=== PATIENT | female | born 1990 | race Caucasian/White ===

== ENCOUNTER 2018-08-25 20:52 | Outpatient (CLI) | payer MEDICAID ==
--- NOTE | 2018-08-25 23:38 | Ultrasound Report ---
Reason: TEST POSITIVE Procedure Date: 08/25/2018 Accession Number: [id number] / [id number] Procedure: US - OB First Trimester CPT Code: FULL RESULT: EXAM: OBSTETRICAL ULTRASOUND, 11-14 weeks EXAM DATE: 08/25/2018 10:05 PM. CLINICAL HISTORY: TEST POSITIVE. LMP: Unknown. COMPARISON: None. TECHNIQUE: Transabdominal ultrasound examination with static image documentation. DATING: EGA 13 weeks 3 days with JO ANN 02/27/2019 based on the current ultrasound. ASSESSMENT: Single viable intrauterine fetus. CRL (crown-rump length): 73.8 mm = 13 weeks 3 days. Cardiac activity: 144 beats per minute. Placenta: Anterior location. Amniotic fluid: Subjectively normal. Other: No perigestational fluid collection demonstrated. MATERNAL STRUCTURES: Uterus: Anteverted. Unremarkable. Cervix: Closed. Right Ovary/Adnexa: Unremarkable. The ovary measures 3.4 x 2.9 x 2.1 cm, volume 11 cc. Left Ovary/Adnexa: Unremarkable. The ovary measures 3.8 x 2.5 x 2.1 cm, volume 10 cc. Free Fluid: None. Other: None. IMPRESSION: 1. Single viable intrauterine fetus with gestational age 13 weeks 3 days based on current ultrasound. Note: Detailed anatomic survey at 18-22 weeks is recommended for all fetuses evaluated prior to 18 weeks, as some structural abnormalities may be inapparent at earlier gestational ages. RADIA
== END 2018-08-25 20:53 | disposition home or self-care (01) ==
LOC: DI 20:52
PROVIDERS: ATTEND Registered Nurse
DX: Z32.01 Encounter for pregnancy test, result positive (principal)
CPT/HCPCS: 76801

== ENCOUNTER 2018-09-04 12:40 | Outpatient (CLI) | payer MEDICAID ==
[2018-09-04 19:11] LABS: MUDS CUTOFF CONCENTRATIONS CUTOFF CONC BELOW:
[2018-09-04 19:43] LABS: AMPHETAMINE SCREEN,URINE NEGATIVE (NEGATIVE); BENZODIAZEPINES SCREEN, URINE NEGATIVE (NEGATIVE); COCAINE SCREEN URINE NEGATIVE (NEGATIVE); METHADONE SCREEN, URINE NEGATIVE (NEGATIVE); METHAMPHETAMINES SCREEN, URINE NEGATIVE (NEGATIVE); OPIATE SCREEN, URINE NEGATIVE (NEGATIVE); OXYCODONE SCREEN, URINE NEGATIVE (NEGATIVE); PROPOXYPHENE SCREEN, URINE NEGATIVE (NEGATIVE); TRICYCLIC ANTIDEPRESSANT,URINE NEGATIVE (NEGATIVE)
== END 2018-09-04 23:59 | disposition home or self-care (01) ==
LOC: LAB.R 12:40
PROVIDERS: ATTEND Registered Nurse
DX: Z33.1 Pregnant state, incidental (principal)
CPT/HCPCS: 80306; 80349; 81599

== ENCOUNTER 2018-10-09 13:27 | Outpatient (CLI) | payer MEDICAID ==
--- NOTE | 2018-10-09 17:27 | Ultrasound Report ---
Reason: SCREENING, OTHER SPECIFIED Procedure Date: 10/09/2018 Accession Number: [id number] / [id number] Procedure: US - OB Detailed Eval CPT Code: FULL RESULT: EXAM: COMPLETE OBSTETRICAL ULTRASOUND EXAM DATE: 10/09/2018 03:20 PM. CLINICAL HISTORY: anatomic survey. COMPARISON: 08/25/2018 TECHNIQUE: Real-time sonographic evaluation of the fetus performed by the general studies program chair. Multiple plastic products sales representative static images were saved for review. Additional transvaginal imaging to more accurately evaluate cervical length/placental position/etc. DATING: Established EGA 19 weeks 6 days with JO ANN 02/27/2019 based on first ultrasound. EGA 19 weeks 3 days with JO ANN 03/02/2019 based on the current ultrasound. GENERAL EVALUATION Ramos . Cardiac activity: 150 bpm. movement: Visualized. Presentation: Breech Placenta: Anterior position. No evidence for previa. Umbilical cord: 3 vessel cord. Central placental cord origin. Amniotic fluid: Subjectively normal. MVP 3.7 cm. BIOMETRY Bi-Parietal Diameter (BPD): 4.4 cm, 19 weeks 2 days Head Circumference (HC): 16.8 cm, 19 weeks 2 days Abdominal Circumference (AC): 14.5 cm, 19 weeks 6 days Femur Length (FL): 2.9 cm, 19 weeks 0 days Estimated Weight: 294 g, 26th percentile ANATOMY The intracranial structures, profile, face/nose/lips, spine, 4 chamber heart and outflow tracts, stomach, abdominal wall and cord insertion, diaphragm, kidneys, bladder, and extremities were visualized and demonstrate no abnormality. MATERNAL STRUCTURES Uterus: Unremarkable. Cervix: Long and closed. Transabdominal length 3.8 cm. Right ovary/adnexa: Unremarkable. Left ovary/adnexa: Unremarkable. Free fluid: None. IMPRESSION: 1. Ramos intrauterine with gestational age 19 weeks 6 days based on first ultrasound of 08/25/2018.. 2. Estimated weight is within expected limits for assigned dating. 3. Normal anatomic survey. No anatomic abnormalities are detected at this time. RADIA
== END 2018-10-09 13:28 | disposition home or self-care (01) ==
LOC: DI 13:27
PROVIDERS: ATTEND Registered Nurse
DX: Z36.89 Encounter for other specified antenatal screening (principal)
CPT/HCPCS: 76811

== ENCOUNTER 2018-10-29 10:59 | Outpatient (CLI) | payer MEDICAID ==
[2018-10-29 11:23] LABS: BASOPHILS % (AUTO) 0.2 %; EOSINOPHILS # (AUTO) 0.1 10^3/uL (0.0-0.7); EOSINOPHILS % (AUTO) 0.8 %; HGB - HEMOGLOBIN 12.5 g/dL (12.0-16.0); LYMPHOCYTES # (AUTO) 1.7 10^3/uL (1.5-3.5); LYMPHOCYTES % (AUTO) 17.3 %; MEAN CORPUSCULAR HEMOGLOBIN 32.5 pg (27.0-31.0); MEAN CORPUSCULAR HGB CONC 33.1 g/dL (32.0-36.0); MEAN CORPUSCULAR VOLUME 98.2 fL (81.0-99.0); MEAN PLATELET VOLUME 10.2 fL (7.9-10.8); MONOCYTES # (AUTO) 0.5 10^3/uL (0.0-1.0); MONOCYTES % (AUTO) 4.6 %; NEUTROPHILS # (AUTO) 7.7 10^3/uL (1.5-6.6); NEUTROPHILS % (AUTO) 76.7 %; PLT - PLATELET COUNT 229 10^3/uL (130-450); RED BLOOD COUNT 3.85 10^6/uL (4.20-5.40); RED CELL DISTRIBUTION WIDTH 11.9 % (12.0-15.0)
[2018-10-29 11:33] LABS: MUDS CUTOFF CONCENTRATIONS CUTOFF CONC BELOW:
[2018-10-29 11:46] LABS: AMPHETAMINE SCREEN,URINE NEGATIVE (NEGATIVE); BENZODIAZEPINES SCREEN, URINE NEGATIVE (NEGATIVE); COCAINE SCREEN URINE NEGATIVE (NEGATIVE); METHADONE SCREEN, URINE NEGATIVE (NEGATIVE); METHAMPHETAMINES SCREEN, URINE NEGATIVE (NEGATIVE); OPIATE SCREEN, URINE NEGATIVE (NEGATIVE); OXYCODONE SCREEN, URINE NEGATIVE (NEGATIVE); PROPOXYPHENE SCREEN, URINE NEGATIVE (NEGATIVE); TRICYCLIC ANTIDEPRESSANT,URINE NEGATIVE (NEGATIVE)
[2018-10-30 13:11] LABS: HEPATITIS B SURFACE ANTIGEN NON-REACTIVE (NON-REACTIVE); HEPATITIS C ANTIBODY NON-REACTIVE (NON-REACTIVE)
[2018-10-30 15:18] LABS: HIV AG/AB 4TH GEN NON-REACTIVE (NON-REACTIVE)
== END 2018-10-29 11:00 | disposition home or self-care (01) ==
LOC: LAB 10:59
PROVIDERS: ATTEND Registered Nurse
DX: Z33.1 Pregnant state, incidental (principal)
CPT/HCPCS: 36415; 80306; 81599; 85025; 86762; 86803; 86850; 86900; 86901; 87340; 87389

== ENCOUNTER 2018-11-27 08:00 | Outpatient (CLI) | payer MEDICAID | END 2018-11-27 23:59 | LOC: LAB.R 08:00 | PROVIDERS: ATTEND Obstetrics & Gynecology | DX: F11.10 Opioid abuse, uncomplicated (principal) | CPT/HCPCS: 80348; 81599 ==

== ENCOUNTER 2019-01-02 12:43 | Outpatient (CLI) | payer MEDICAID ==
[2019-01-02 14:01] LABS: HGB - HEMOGLOBIN 12.3 g/dL (12.0-16.0); MEAN CORPUSCULAR HEMOGLOBIN 33.3 pg (27.0-31.0); MEAN CORPUSCULAR HGB CONC 33.9 g/dL (32.0-36.0); MEAN CORPUSCULAR VOLUME 98.4 fL (81.0-99.0); MEAN PLATELET VOLUME 10.5 fL (7.9-10.8); RED BLOOD COUNT 3.69 10^6/uL (4.20-5.40); RED CELL DISTRIBUTION WIDTH 12.2 % (12.0-15.0)
== END 2019-01-02 12:44 | disposition home or self-care (01) ==
LOC: LAB 12:43
PROVIDERS: ATTEND Obstetrics & Gynecology
DX: Z36.89 Encounter for other specified antenatal screening (principal)
CPT/HCPCS: 36415; 82950; 85027; 86850

== ENCOUNTER 2019-01-22 08:00 | Outpatient (CLI) | payer MEDICAID ==
[2019-01-23 21:52] LABS: TRICHOMONAS VAGINALIS DNA NEGATIVE (NEGATIVE)
== END 2019-01-22 23:59 | disposition home or self-care (01) ==
LOC: LAB.R 08:00
PROVIDERS: ATTEND Obstetrics & Gynecology
DX: Z36.85 Encounter for antenatal screening for Streptococcus B (principal)
CPT/HCPCS: 87491; 87591; 87661; 87797

== ENCOUNTER 2019-03-06 17:17 | Outpatient (CLI) | payer MEDICAID | END 2019-03-06 17:18 | disposition home or self-care (01) | LOC: WFO 17:17 | PROVIDERS: ATTEND Obstetrics & Gynecology | DX: Z53.9 Procedure and treatment not carried out, unspecified reason (principal) ==

== ENCOUNTER 2022-05-03 08:00 | Outpatient (CLI) | payer MEDICAID ==
[2022-05-03 17:13] LABS: BILIRUBIN,URINE NEGATIVE (NEGATIVE); GLUCOSE, URINE (UA) NEGATIVE (NEGATIVE); KETONES,URINE (UA) NEGATIVE (NEGATIVE); LEUKOCYTE ESTERASE, URINE NEGATIVE (NEGATIVE); NITRITE,URINE NEGATIVE (NEGATIVE); OCCULT BLOOD,URINE NEGATIVE (NEGATIVE); PH,URINE 8.5 PH (5.0-7.5); PROTEIN,URINE NEGATIVE (NEGATIVE); UROBILINOGEN,URINE 0.2 (NORMAL) E.U./dL (NORMAL)
[2022-05-03 17:26] LABS: BACTERIA,URINE Few /HPF (None Seen); CLARITY,URINE CLEAR (CLEAR); RBC,URINE None Seen /HPF (0-5); SQUAMOUS EPITHELIAL CELL,UR MANY Squamous (<= Few); WBC,URINE 0-3 /HPF (0-5)
== END 2022-05-03 23:59 | disposition home or self-care (01) ==
LOC: LAB.WC 08:00
PROVIDERS: ATTEND Obstetrics & Gynecology
DX: Z34.90 Encounter for supervision of normal pregnancy, unspecified, unspecified trimester (principal)
CPT/HCPCS: 81001; 87086

== ENCOUNTER 2022-05-18 20:55 | Outpatient (CLI) | payer MEDICAID ==
--- NOTE | 2022-05-19 03:41 | Ultrasound Report ---
PROCEDURE: OB First Trimester INDICATIONS: POSITIVE TEST OUTSIDE/PRIOR DATING DATA: Last menstrual period (LMP): 03/01/2022. LMP-based estimated date of delivery (JO ANN): 12/06/2022. First dating scan (date and location): 05/18/2022. Estimated date of delivery (JO ANN) from first dating scan: 12/21/2022. TECHNIQUE: Real-time scanning was performed of the fetus and maternal pelvic organs, with image documentation. COMPARISON: FINDINGS: Embryo: There is an intrauterine patency with a gestational sac, yolk sac, and pole identified . The crown-rump length measures up to 2.3 cm corresponding to a gestational age of 9 weeks 0 days. T here is heart motion with a rate of 171 bpm. There is an indistinct heterogeneous subchorionic hematoma measuring proxy by 2.5 x 2 x 2.4 cm. Measurement variability in dating: +/- 4 weeks by LMP, +/- 7 days by mean sac diameter (use before 6 weeks gestation if crown-rump length not able to be measured), +/- 5 days by crown-rump length (6-12 weeks gestation). Maternal organs: The ovaries appear within normal size limits bilaterally. A cyst within the right ov jef measuring up to 1.4 cm likely represents a corpus luteal cyst. No adnexal masses. IMPRESSION: 1. Single living intrauterine with cartilage gestational age of 9 weeks 0 days correspondin g to an estimated delivery date of 12/21/2022. Reviewed by: Adria Vargas MD on 05/19/2022 3:40 AM PST Approved by: Adria Vargas MD on 05/19/2022 3:40 AM PST Station ID: [id number]
== END 2022-05-18 20:56 | disposition home or self-care (01) ==
LOC: DI 20:55
PROVIDERS: ATTEND Obstetrics & Gynecology
DX: Z34.91 Encounter for supervision of normal pregnancy, unspecified, first trimester (principal); Z3A.09 9 weeks gestation of pregnancy

== ENCOUNTER 2022-06-14 14:30 | Outpatient (CLI) | payer MEDICAID ==
[2022-06-15 22:08] LABS: BACTERIAL VAGINOSIS DNA NEGATIVE (NEGATIVE); CANDIDA GLABRATA DNA NEGATIVE (NEGATIVE); CANDIDA GROUP DNA NEGATIVE (NEGATIVE); CANDIDA KRUSEI DNA NEGATIVE (NEGATIVE); TRICHOMONAS VAGINALIS DNA NEGATIVE (NEGATIVE)
[2022-06-15 23:06] LABS: CHLAMYDIA TRACHOMATIS DNA NEGATIVE (NEGATIVE); NEISSERIA GONORRHOEAE DNA NEGATIVE (NEGATIVE)
== END 2022-06-14 23:59 | disposition home or self-care (01) ==
LOC: LAB.N 14:30
PROVIDERS: ATTEND Obstetrics & Gynecology
DX: N89.8 Other specified noninflammatory disorders of vagina (principal); Z11.3 Encounter for screening for infections with a predominantly sexual mode of transmission
CPT/HCPCS: 81514; 87491; 87591; 87661

== ENCOUNTER 2022-06-27 11:46 | Outpatient (CLI) | payer MEDICAID ==
[2022-06-27 12:04] LABS: BASOPHILS % (AUTO) 0.2 %; EOSINOPHILS # (AUTO) 0.1 10^3/uL (0.0-0.7); EOSINOPHILS % (AUTO) 0.7 %; HCT - HEMATOCRIT 39.3 % (37.0-47.0); HGB - HEMOGLOBIN 13.6 g/dL (12.0-16.0); LYMPHOCYTES # (AUTO) 1.9 10^3/uL (1.5-3.5); LYMPHOCYTES % (AUTO) 18.7 %; MEAN CORPUSCULAR HEMOGLOBIN 32.3 pg (27.0-31.0); MEAN CORPUSCULAR HGB CONC 34.6 g/dL (32.0-36.0); MEAN CORPUSCULAR VOLUME 93.3 fL (81.0-99.0); MEAN PLATELET VOLUME 10.4 fL (7.9-10.8); MONOCYTES # (AUTO) 0.5 10^3/uL (0.0-1.0); MONOCYTES % (AUTO) 5.1 %; NEUTROPHILS # (AUTO) 7.8 10^3/uL (1.5-6.6); NEUTROPHILS % (AUTO) 75.1 %; PLT - PLATELET COUNT 265 10^3/uL (130-450); RED BLOOD COUNT 4.21 10^6/uL (4.20-5.40); RED CELL DISTRIBUTION WIDTH 11.9 % (12.0-15.0); WHITE BLOOD COUNT 10.3 x10^3/uL (4.8-10.8)
[2022-06-28 05:10] LABS: HBsAG SCREEN Negative (Negative)
[2022-06-28 06:10] LABS: RPR Non Reactive (Non Reactive)
[2022-06-28 08:10] LABS: VARICELLA-ZOSTER AB IGG 252 index (Immune >165)
[2022-06-29 05:11] LABS: HCV AB Non Reactive (Non Reactive); HIV SCREEN 4TH GENERATION Non Reactive (Non Reactive)
== END 2022-06-27 11:47 | disposition home or self-care (01) ==
LOC: LAB 11:46
PROVIDERS: ATTEND Obstetrics & Gynecology
DX: Z34.90 Encounter for supervision of normal pregnancy, unspecified, unspecified trimester (principal)
CPT/HCPCS: 36415; 85025; 86592; 86762; 86787; 86803; 86850; 86900; 86901; 87340; 87389

== ENCOUNTER 2022-08-06 20:05 | Outpatient (CLI) | payer MEDICAID ==
--- NOTE | 2022-08-07 14:39 | Ultrasound Report ---
PROCEDURE: OB Detailed Eval INDICATIONS: SUPERVISION OF OUTSIDE/PRIOR DATING DATA: Last menstrual period (LMP): 03/01/2022. LMP-based estimated date of delivery (JO ANN): 12/06/2022. First dating scan (date and location): 05/18/2022. Estimated date of delivery (JO ANN) from first dating scan: 12/21/2022. The below data below was generated using the ultrasound JO ANN of 12/21/2022 TECHNIQUE: Real-time scanning was performed of the fetus, with image documentation and biometric measurements. COMPARISON: OB ultrasound 05/19/2022 FINDINGS: General: A single living intrauterine gestation is present. Presentation: Variable Placenta: Placental position is posterior, without previa. Amniotic fluid index: 13.9 cm, within normal limits for gestational age. heart rate: 144 beats per minute. Maternal cervical canal: Closed biometrics: Biparietal diameter: 5.1 cm 21 weeks 3 days Head circumference: 19.0 cm 21 weeks 2 days Abdominal circumference: 16.2 cm 21 weeks 2 days Femur length: 3.5 cm 21 weeks 0 days Estimated gestational age from initial scan: 20 weeks 3 days Composite gestational age from present scan: 21 weeks 0 days Estimated weight and percentile: 405.8 g, 85th percentile Measurement variability in biometric dating: +/- 10 days from 12-20 weeks gestation, +/- 2 weeks from 20-30 weeks gestation, +/- 3 weeks at 30 weeks gestation or later. Anatomic survey: Neuro: Ventricles are normal at less than 10 mm. Cisterna magna is normal at 3-11 mm. Cerebellum i s normal in size and morphology. Nuchal skin fold: Normal at less than 6 mm between 14 and 20 weeks gestational age. Face: Nose and lips, facial profile are normal. Spine: Not well seen. Heart: 4-chambered heart and ventricular outflow tracts are suboptimally evalu ated. Diaphragm: Diaphragm is intact. Stomach: Left-sided stomach is present. Kidneys: Slight appearance of renal pelvic prominence measuring 6 mm bilaterally. Cord: 3 vessel cord has orthotopic insertion. Bladder: Normal in size. Extremities: All 4 extremities are visualized. IMPRESSION: Single live intrauterine with ultrasound gestational age today of 21 weeks 0 days. Heart/outflow tracts as well as spine are suboptimally evaluated. Minimal prominence of the renal pelvises bilaterally. Reviewed by: Kelli Mendoza MD on 08/07/2022 2:38 PM PDT Approved by: Kelli Mendoza MD on 08/07/2022 2:38 PM PDT Station ID: [id number]
== END 2022-08-06 20:06 | disposition home or self-care (01) ==
LOC: DI 20:05
PROVIDERS: ATTEND Nurse Practitioner
DX: Z34.92 Encounter for supervision of normal pregnancy, unspecified, second trimester (principal); Z36.89 Encounter for other specified antenatal screening

== ENCOUNTER 2022-10-05 20:08 | Outpatient (CLI) | payer MEDICAID ==
--- NOTE | 2022-10-06 00:50 | Ultrasound Report ---
PROCEDURE: OB F/U or Repeat INDICATIONS: SUPERVISION OF OUTSIDE/PRIOR DATING DATA: Last menstrual period (LMP): 03/01/2022. LMP-based estimated date of delivery (JO ANN): 12/06/2022. First dating scan (date and location): 05/18/2022. Estimated date of delivery (JO ANN) from first dating scan: 12/21/2022. The below data below was generated using the ultrasound JO ANN of 12/21/2022 TECHNIQUE: Real-time scanning was performed of the fetus, with image documentation. COMPARISON: 08/06/2022, 05/18/2022 FINDINGS: General: A single live intrauterine gestation is present. Presentation: Transverse Placenta: Placental position is posterior, without previa. Amniotic fluid index: 14.8 cm, within normal limits for gestational age. heart rate: 132 beats per minute. Maternal cervical canal: Not seen. Other: The spine, cardiac outflow tracts, diaphragm and stomach are within normal limits. Prominence of the renal pelvis can be seen on each side, without brianna hydronephrosis. A nuchal cord can be seen. IMPRESSION: No brianna anatomic abnormality is seen. The cardiac outflow tracts down for normal. Prominence of the renal pelvis can be seen on each side, yet without brianna hydronephrosis. A nuchal cord can be seen. Reviewed by: Rachid Melendez MD on 10/05/2022 11:49 PM TORO Approved by: Rachid Melendez MD on 10/05/2022 11:49 PM TORO Station ID: [id number]
== END 2022-10-05 20:09 | disposition home or self-care (01) ==
LOC: DI 20:08
PROVIDERS: ATTEND Nurse Practitioner
DX: O34.211 Maternal care for low transverse scar from previous cesarean delivery (principal); Z3A.00 Weeks of gestation of pregnancy not specified

== ENCOUNTER 2022-10-25 11:51 | Outpatient (CLI) | payer MEDICAID ==
--- NOTE | 2022-10-25 17:33 | Ultrasound Report ---
PROCEDURE: OB F/U or Repeat INDICATIONS: SUPERVISION OF OUTSIDE/PRIOR DATING DATA: Last menstrual period (LMP): 03/01/2022. LMP-based estimated date of delivery (JO ANN): 12/06/2022. First dating scan (date and location): 05/18/2022. Estimated date of delivery (JO ANN) from first dating scan: 12/21/2022. The below data below was generated using the working JO ANN of 04/01/2023 TECHNIQUE: Real-time scanning was performed of the fetus, with image documentation and biometric measurements. Endovaginal scanning: None COMPARISON: None. FINDINGS: General: A single living intrauterine gestation is present. Presentation: Cephalic Placenta: Placental position is posterior, without previa. Amniotic fluid index: 15.5 cm, 57 for gestational age. heart rate: 125 beats per minute. Maternal cervical canal: Not imaged Estimated gestational age from initial scan: 31 week 6 day Measurement variability in biometric dating: +/- 10 days from 12-20 weeks gestation, +/- 2 weeks from 20-30 weeks gestation, +/- 3 weeks at 30 weeks gestation or more. Other: Persistent renal pyelocaliectasis measures 6.1 mm in the right and 5.5 mm the left IMPRESSION: Single live intrauterine consistent with 31 week 6 day gestation. Persistent renal pyelocaliectasis Reviewed by: Mark Blanco MD on 10/25/2022 4:31 PM TORO Approved by: Mark Blanco MD on 10/25/2022 4:31 PM AKDT Station ID: [id number]
== END 2022-10-25 11:52 | disposition home or self-care (01) ==
LOC: DI 11:51
PROVIDERS: ATTEND Nurse Practitioner
DX: O28.3 Abnormal ultrasonic finding on antenatal screening of mother (principal); Z3A.31 31 weeks gestation of pregnancy; O99.891 Other specified diseases and conditions complicating pregnancy; R53.83 Other fatigue; Z36.89 Encounter for other specified antenatal screening
CPT/HCPCS: 36415; 82728; 82950; 85027

== ENCOUNTER 2022-10-25 12:19 | Outpatient (CLI) | payer MEDICAID ==
[2022-10-25 13:33] LABS: HCT - HEMATOCRIT 34.8 % (37.0-47.0); MEAN CORPUSCULAR HEMOGLOBIN 32.4 pg (27.0-31.0); MEAN CORPUSCULAR HGB CONC 34.5 g/dL (32.0-36.0); MEAN CORPUSCULAR VOLUME 94.1 fL (81.0-99.0); RED BLOOD COUNT 3.7 10^6/uL (4.20-5.40); RED CELL DISTRIBUTION WIDTH 11.6 % (12.0-15.0); WHITE BLOOD COUNT 9.7 x10^3/uL (4.8-10.8)
== END 2022-10-25 12:20 | disposition home or self-care (01) ==
LOC: LAB 12:19
PROVIDERS: ATTEND Nurse Practitioner
DX: O99.891 Other specified diseases and conditions complicating pregnancy (principal); R53.83 Other fatigue; Z36.89 Encounter for other specified antenatal screening
CPT/HCPCS: 36415; 82728; 82950; 85027

== ENCOUNTER 2023-10-14 15:00 | Outpatient (CLI) | payer MEDICAID ==
--- NOTE | 2023-10-14 16:38 | XRAY Report ---
PROCEDURE: Chest 2V INDICATIONS: CHEST PAIN TECHNIQUE: 2 views of the chest were acquired. COMPARISON: None. FINDINGS: Surgical changes and devices: None. Lungs and pleura: No pleural effusions or pneumothorax. Patchy pneumonia, right upper lobe. Mediastinum: Mediastinal contours appear normal. Heart size is normal. Bones and chest wall: No suspicious bony lesions. Overlying soft tissues appear unremarkable. IMPRESSION: Patchy right upper lobe pneumonia. Progress films are recommended until clear. Reviewed by: Nakul Cervantes MD on 10/14/2023 4:36 PM PDT Approved by: Nakul Cervantes MD on 10/14/2023 4:36 PM PDT Station ID: [id number]
== END 2023-10-14 15:15 | disposition home or self-care (01) ==
LOC: DI.N 15:00
PROVIDERS: ATTEND Physician Assistant
DX: R07.9 Chest pain, unspecified (principal); J18.9 Pneumonia, unspecified organism

== ENCOUNTER 2023-10-14 20:34 | Emergency (ER) | payer MEDICAID ==
--- NOTE | 2023-10-14 21:24 | ED Physician Documentation ---
PD HPI CHEST PAIN - Stated complaint Stated Complaint: SOA/FLUID IN LUNGS - Chief complaint Chief Complaint: Resp - History obtained from History obtained from: Patient - Additional information Additional information: She is been sick for 3 weeks with cough fevers and runny nose as has everyone in her house. Over the last day or so she feels like she has fluid in her chest. She went to the urgent care where she had a x-ray showing pneumonia in the right upper lobe and she was referred here for further evaluation and treatment to confirm that she did not have a blood clot. Nothing in the history or physical to suggest a blood clot. PD PAST MEDICAL HISTORY - Past Medical History Past Medical History: Yes - Past Surgical History Past Surgical History: No - Present Medications Home Medications: Ambulatory Orders Medication Instructions Recorded Confirmed Azithromycin [Zithromax] 1 tab PO DAILY #4 tab 10/14/23 Cefdinir 300 mg PO BID #10 cap 10/14/23 buprenorphine HCL [Buprenorphine 2 mg SL DAILY 10/14/23 10/14/23 HCl] - Allergies Allergies/Adverse Reactions: Allergies Allergy/AdvReac Type Severity Reaction Status Date / Time Penicillins Allergy Unknown Verified 10/14/23 20:44 - Social History Does the pt smoke?: No Smoking Status: Never smoker PD ED PE NORMAL - Vitals Vital signs reviewed: Yes - General General: Alert and oriented X 3, No acute distress - Neck Neck: Supple, no meningeal sign, No bony TTP - Cardiac Cardiac: RRR, No murmur - Respiratory Respiratory: No respiratory distress, Clear bilaterally - Abdomen Abdomen: Non tender - Extremities Extremities: No edema, No calf tenderness / cord - Neuro Neuro: Alert and oriented X 3, Normal speech Results - Vitals Vitals: Vital Signs - 24 hr 10/14/23 20:41 Temperature 36.3 C L Heart Rate 100 Respiratory 18 Rate Blood Pressure 140/75 H O2 Saturation 100 Oxygen O2 Source Room air PD Medical Decision Making - ED course ED course: She has a clear lobar pneumonia on the x-ray, With appropriate viral prodrome and typical symptoms. Her lungs are clear with no pedal edema. She was sent from the urgent care to work her up for blood clot which I do not think is necessary. She is treated with outpatient antibiotics noting her penicillin allergy. Departure - Departure Disposition: 01 Home, Self Care Clinical Impression: Pneumonia Qualifiers: Laterality: right Lung location: upper lobe of lung Condition: Good Record reviewed to determine appropriate education?: Yes Instructions: Pneumonia Dc Prescriptions: Cefdinir 300 mg PO BID #10 cap Azithromycin [Zithromax] 1 tab PO DAILY #4 tab Comments: I sent your prescriptions electronically to the [facility] in [place]. Return if you worsen or develop new or other worsening symptoms. Forms: PCP List, Activity restrictions
[2023-10-14] MEDS: AZITHROMYCIN 250 MG TABLET PO STA (21:28)
[2023-10-14] MEDS: CEFPODOXIME PROXETIL 100 MG TABLET PO STA (21:28)
[2023-10-14 21:41] LABS: CORONAVIRUS 229E-RESP PCR NOT DETECTED; CORONAVIRUS HKU1-RESP PCR NOT DETECTED; CORONAVIRUS NL63-RESP PCR NOT DETECTED; CORONAVIRUS OC43-RESP PCR NOT DETECTED; HUMAN METAPNEUMOVIRUS NOT DETECTED; INFLUENZA A- RESP PCR PANEL NOT DETECTED; RHINOVIRUS/ENTEROVIRUS NOT DETECTED; SARS-CoV-2 -RESP PCR PANEL NOT DETECTED
[2023-10-14 21:42] VITALS: BP 121/63; O2SAT 99
[2023-10-14 21:42] LABS: B. PARAPERTUSSIS- RESP PCR PAN NOT DETECTED; B. PERTUSSIS- RESP PCR PANEL NOT DETECTED; C. PNEUMONIAE- RESP PCR PANEL NOT DETECTED; INFLUENZA B - RESP PCR PANEL NOT DETECTED; M. PNEUMONIAE- RESP PCR PANEL NOT DETECTED; PARAINFLUENZA VIRUS 1 NOT DETECTED; PARAINFLUENZA VIRUS 2 NOT DETECTED; PARAINFLUENZA VIRUS 3 NOT DETECTED; PARAINFLUENZA VIRUS 4 NOT DETECTED; RSV- RESP PCR PANEL NOT DETECTED
== END 2023-10-14 21:32 | disposition home or self-care (01) ==
LOC: ED 20:34
DX: J18.9 Pneumonia, unspecified organism (principal); Z88.0 Allergy status to penicillin
CPT/HCPCS: 71046; 87633; 99283; A9270